=== PATIENT | male | born 2005 | race Hispanic/Latino ===

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

== ENCOUNTER 2025-01-20 16:25 | Emergency (ER) | payer OTHER, SELFPAY ==
[2025-01-20] MEDS ORDERED: Acetaminophen 500 MG TAB ONE (17:24)
== END 2025-01-20 19:11 | disposition home or self-care (01) ==
LOC: ERS 16:25
DX: S70.02XA Contusion of left hip, initial encounter (principal); S50.02XA Contusion of left elbow, initial encounter; Z23 Encounter for immunization; V28.49XA Other motorcycle driver injured in noncollision transport accident in traffic accident, initial encounter; Y92.481 Parking lot as the place of occurrence of the external cause
CPT/HCPCS: 90471; 90715; 96372

== ENCOUNTER 2025-02-23 08:34 | Emergency (ER) | payer SELFPAY ==
[2025-02-23] MEDS ORDERED: Acetaminophen 325 MG TAB ONE (09:22)
== END 2025-02-23 09:28 | disposition home or self-care (01) ==
LOC: ERS 08:34
DX: J06.9 Acute upper respiratory infection, unspecified (principal); B97.89 Other viral agents as the cause of diseases classified elsewhere
CPT/HCPCS: 87428; 99284